=== PATIENT | female | born 2000 | race African-American/Black ===

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

== ENCOUNTER 2018-01-14 19:29 | Emergency (ER) | payer OTHER ==
[~2018-01-14] VITALS: Ht 157.5 cm; Wt 50.0 kg
[2018-01-14 20:35] LABS: CLARITY URINE CLOUDY (CLEAR); COLOR URINE YELLOW (YELLOW); KETONES URINE NEGATIVE (NEGATIVE); LEUKOCYTE ESTERASE URINE 3+ (NEGATIVE); NITRITE URINE NEGATIVE (NEGATIVE); OCCULT BLOOD URINE NEGATIVE (NEGATIVE); PH URINE 6.5 (4.5-8.0); PROTEIN URINE NEGATIVE (NEGATIVE); SPECIFIC GRAVITY URINE 1.023 (1.005-1.030)
[2018-01-14 21:57] VITALS: BP 99/50
[2018-01-14] MEDS ORDERED: ACETAMINOPHEN 325MG TABLET PO ONE (22:45)
[2018-01-14 23:43] LABS: BASOPHILS % 0.3 % (0.0-2.0); EOSINOPHILS % 1.2 % (0.0-5.0); HEMATOCRIT. 32.7 % (36.0-48.0); HEMOGLOBIN. 10.5 g/dL (12.0-16.0); LYMPHOCYTES % 22.1 % (20.0-50.0); MEAN CORPUSCULAR HEMOGLOBIN 21.4 pg (28.0-32.0); MEAN CORPUSCULAR VOLUME 66.2 fL (81.0-99.0); MEAN PLATELET VOLUME 7.8 fl (7.4-10.4); MONOCYTES % 9.9 % (2.0-8.0); NEUTROPHILS % 66.5 % (40.0-76.0); PLATELET 272 x1000/uL (130-400); RED BLOOD CELL COUNT 4.94 mill/uL (4.2-5.4); RED CELL DISTRIBUTION WIDTH 17.2 % (11.6-14.6)
[2018-01-14 23:49] LABS: CHLORIDE 104 mEq/L (98-107)
[2018-01-15 00:13] LABS: B-HCG QUANTITATIVE 34631 mIU/mL (<3)
[2018-01-15 00:19] LABS: PLATELET ESTIMATE NORMAL
== END 2018-01-15 01:36 | disposition home or self-care (01) ==
LOC: ER 19:29
DX: O26.892 Other specified pregnancy related conditions, second trimester (principal); R82.71 Bacteriuria; R10.9 Unspecified abdominal pain; Z3A.16 16 weeks gestation of pregnancy
CPT/HCPCS: 36415; 76805; 80053; 81003; 81025; 83690; 84702; 85025; 99285

== ENCOUNTER 2018-04-10 20:40 | Observation (INO) | payer OTHER ==
[~2018-04-10] VITALS: Ht 162.6 cm; Wt 74.4 kg
[2018-04-10] MEDS ORDERED: PNV1TABL50 MT (21:15)
[2018-04-10] MEDS ORDERED: ACET-2178 MT (21:15)
[2018-04-10] MEDS ORDERED: DEXT 5%/LACTATED RINGERS 1,000 ML IV SCH (22:30)
[2018-04-10] MEDS ORDERED: TERBUTALINE SULFATE 1MG/ML VIAL SUBCUT NR (23:15)
[2018-04-10] MEDS ORDERED: ACETAMINOPHEN 500MG TABLET PO NR (23:15)
[2018-04-11 00:56] LABS: COLOR URINE YELLOW (YELLOW); KETONES URINE NEGATIVE (NEGATIVE); LEUKOCYTE ESTERASE URINE 1+ (NEGATIVE); NITRITE URINE NEGATIVE (NEGATIVE); OCCULT BLOOD URINE NEGATIVE (NEGATIVE); PROTEIN URINE NEGATIVE (NEGATIVE); SPECIFIC GRAVITY URINE 1.025 (1.005-1.030)
[2018-04-11 00:58] LABS: CLARITY URINE SL HAZY (CLEAR)
[2018-04-11] MEDS ORDERED: CEFAZOLIN 2,000 MG in DEXT 5% WATER 100 ML IV NR (01:30)
== END 2018-04-11 02:20 | disposition home or self-care (01) ==
LOC: L&D 20:40
PROVIDERS: ADMIT Specialist; ATTEND Specialist
DX: O26.892 Other specified pregnancy related conditions, second trimester (principal); R10.9 Unspecified abdominal pain; N89.8 Other specified noninflammatory disorders of vagina; Z3A.27 27 weeks gestation of pregnancy
CPT/HCPCS: 81003; 96365; 96372; 99281; G0378; J0690; J3105; 96360; 96361; J7060; J7120

== ENCOUNTER 2018-05-23 17:30 | Observation (INO) | payer OTHER ==
[~2018-05-23] VITALS: Ht 162.6 cm; Wt 49.4 kg
[~2018-05-23 17:30] MED LIST: ACET-2178 MT; PNV1TABL50 MT
[2018-05-23] MEDS ORDERED: LACTATED RINGERS 1,000 ML IV ONE (18:00)
[2018-05-23 19:08] LABS: CLARITY URINE CLEAR (CLEAR); COLOR URINE YELLOW (YELLOW); KETONES URINE NEGATIVE (NEGATIVE); LEUKOCYTE ESTERASE URINE 3+ (NEGATIVE); NITRITE URINE NEGATIVE (NEGATIVE); OCCULT BLOOD URINE 1+ (NEGATIVE); PROTEIN URINE NEGATIVE (NEGATIVE); SPECIFIC GRAVITY URINE 1.012 (1.005-1.030)
[2018-05-23 19:38] LABS: *AMPHETAMINES SCREEN URINE NEGATIVE (NEGATIVE); *BARBITURATES SCREEN URINE NEGATIVE (NEGATIVE); *BENZODIAZEPINES SCREEN URINE NEGATIVE (NEGATIVE); *COCAINE SCREEN URINE NEGATIVE (NEGATIVE); METHADONE URINE SCREEN NEGATIVE (NEGATIVE)
[2018-05-23 19:39] LABS: CANNABINOID URINE SCREEN NEGATIVE (NEGATIVE); OPIATES URINE SCREEN NEGATIVE (NEGATIVE); PHENCYCLIDINE URINE SCREEN NEGATIVE (NEGATIVE)
[2018-05-23] MEDS ORDERED: TERBUTALINE SULFATE 1MG/ML VIAL SUBCUT PRN (21:15)
== END 2018-05-23 22:35 | disposition home or self-care (01) ==
LOC: L&D 17:30
PROVIDERS: ADMIT Specialist; ATTEND Specialist
DX: O62.9 Abnormality of forces of labor, unspecified (principal); O26.893 Other specified pregnancy related conditions, third trimester; N89.8 Other specified noninflammatory disorders of vagina; Z3A.33 33 weeks gestation of pregnancy
CPT/HCPCS: 80305; 81003; 96372; 99281; G0378; J3105; 96360; 96361

== ENCOUNTER 2021-05-27 10:12 | Emergency (ER) | payer OTHER ==
[~2021-05-27] VITALS: Ht 157.5 cm; Wt 49.0 kg
[~2021-05-27 10:12] MED LIST changes: -ACET-2178 MT; +TOPUD MT
[2021-05-27] MEDS ORDERED: ONDANSETRON HCL 4MG/2ML INJ IV ONE (11:15)
[2021-05-27] MEDS ORDERED: SODIUM CHLORIDE 0.9% 1,000 ML IV ONE (11:15)
[2021-05-27 11:19] LABS: BASOPHILS % 0.2 % (0.0-2.0); EOSINOPHILS % 0.8 % (0.0-5.0); HEMATOCRIT. 33.6 % (36.0-48.0); HEMOGLOBIN. 10.6 g/dL (12.0-16.0); LYMPHOCYTES % 20.2 % (20.0-50.0); MEAN CORPUSCULAR HEMOGLOBIN 20.1 pg (28.0-32.0); MEAN CORPUSCULAR VOLUME 63.8 fL (81.0-99.0); MONOCYTES % 8.6 % (2.0-8.0); NEUTROPHILS % 70.2 % (40.0-76.0); PLATELET 335 x1000/uL (130-400); RED BLOOD CELL COUNT 5.28 mill/uL (4.2-5.4); RED CELL DISTRIBUTION WIDTH 17.9 % (11.6-14.6)
[2021-05-27 11:25] LABS: CLARITY URINE TURBID (CLEAR); COLOR URINE YELLOW (YELLOW); KETONES URINE TRACE (NEGATIVE); LEUKOCYTE ESTERASE URINE 2+ (NEGATIVE); NITRITE URINE NEGATIVE (NEGATIVE); OCCULT BLOOD URINE NEGATIVE (NEGATIVE); PH URINE 7.5 (4.5-8.0); PROTEIN URINE TRACE (NEGATIVE); SPECIFIC GRAVITY URINE 1.023 (1.005-1.030)
[2021-05-27 11:32] LABS: PROTHROMBIN TIME 10.9 sec (9.6-11.0)
[2021-05-27 11:40] LABS: *BARBITURATES SCREEN URINE NEGATIVE (NEGATIVE)
[2021-05-27 11:41] LABS: *BENZODIAZEPINES SCREEN URINE NEGATIVE (NEGATIVE); *COCAINE SCREEN URINE NEGATIVE (NEGATIVE); CANNABINOID URINE SCREEN NEGATIVE (NEGATIVE); METHADONE URINE SCREEN NEGATIVE (NEGATIVE); OPIATES URINE SCREEN NEGATIVE (NEGATIVE)
[2021-05-27 11:42] LABS: *AMPHETAMINES SCREEN URINE NEGATIVE (NEGATIVE); PHENCYCLIDINE URINE SCREEN NEGATIVE (NEGATIVE)
[2021-05-27 11:47] LABS: B-HCG QUANTITATIVE 180896 mIU/mL (<3)
[2021-05-27 11:49] LABS: PLATELET ESTIMATE NORMAL
[2021-05-27 11:57] LABS: CHLORIDE 106 mEq/L (98-107)
[2021-05-27] MEDS ORDERED: CEFAZOLIN 1000MG PREMIX 50 ML IV ONE (12:15)
[2021-05-27] MEDS ORDERED: FAMO-135 MT (15:00)
[2021-05-27] MEDS ORDERED: ONDA4TAB11 PO (15:00)
[2021-05-27] MEDS ORDERED: NITR-87 MT (15:00)
[2021-05-27 15:30] VITALS: BP 120/74
== END 2021-05-27 15:45 | disposition home or self-care (01) ==
LOC: ER 10:24
DX: O23.41 Unspecified infection of urinary tract in pregnancy, first trimester (principal); N39.0 Urinary tract infection, site not specified; O98.311 Other infections with a predominantly sexual mode of transmission complicating pregnancy, first trimester; A59.01 Trichomonal vulvovaginitis; Z3A.11 11 weeks gestation of pregnancy
CPT/HCPCS: 36415; 76801; 76817; 80053; 80305; 81003; 84702; 85025; 85610; 86850; 86900; 86901; 87086; 96365; 96375; 99285; J0690; J2405; J7030

== ENCOUNTER 2021-09-25 16:19 | Observation (INO) | payer OTHER ==
[~2021-09-25] VITALS: Ht 152.4 cm; Wt 53.5 kg
[~2021-09-25 16:19] MED LIST changes: +FAMO-135 MT; +NITR-87 MT; +ONDA4TAB11 PO
[2021-09-25 17:16] LABS: CLARITY URINE CLOUDY (CLEAR); COLOR URINE DARK YELLOW (YELLOW); KETONES URINE 1+ (NEGATIVE); LEUKOCYTE ESTERASE URINE 3+ (NEGATIVE); NITRITE URINE NEGATIVE (NEGATIVE); OCCULT BLOOD URINE NEGATIVE (NEGATIVE); PH URINE 5.5 (4.5-8.0); PROTEIN URINE TRACE (NEGATIVE); SPECIFIC GRAVITY URINE 1.027 (1.005-1.030)
[2021-09-25] MEDS ORDERED: LACTATED RINGERS 1,000 ML IV SCH (18:00)
[2021-09-25] MEDS ORDERED: TERBUTALINE SULFATE 1MG/ML VIAL SUBCUT PRN (18:30)
[2021-09-25] MEDS ORDERED: CEFAZOLIN 1000MG PREMIX 50 ML IV NR (20:00)
== END 2021-09-25 20:49 | disposition home or self-care (01) ==
LOC: 8 EST LDRP 16:19
PROVIDERS: ADMIT Obstetrics & Gynecology; ATTEND Obstetrics & Gynecology
DX: O26.893 Other specified pregnancy related conditions, third trimester (principal); R10.30 Lower abdominal pain, unspecified; O99.891 Other specified diseases and conditions complicating pregnancy; M54.9 Dorsalgia, unspecified; Z3A.29 29 weeks gestation of pregnancy
CPT/HCPCS: 76805; 76818; 81003; 82731; 96361; 96365; G0378; J0690; 59025; 99281